=== PATIENT | female | born 1945 | race Caucasian/White ===

== ENCOUNTER 2017-09-14 11:11 | Outpatient (CLI) | payer MEDICARE, OTHER ==
--- NOTE | 2017-09-15 09:34 | PET ---
PET SCAN WITH CT ATTENUATION CORRECTION: HISTORY: Enlarged ground glass nodule in the middle lobe. Right lung adenocarcinoma. COMPARISON: None. TECHNIQUE: PET scan with CT attenuation correction was performed from the base of the brain to the proximal thig hs, following the intravenous administered of 9.8 millicuries of F18 fluorodeoxyglucose. FINDINGS: HEAD/NECK: No abnormal FDG localization. CHEST: No abnormal FDG localization. There are ground glass opacities in the middle lobe and lingul a. Maximum SUV is less than 1, with respect to both lesions. ABDOMEN/PELVIS: No abnormal FDG localization. There is increased mucosal thickening involving the s igmoid colon with evidence of diverticulosis. Findings may be due to remote bouts of infection. Cli nical correlation is essential. If the patient has not undergone a recent colonoscopy, consider colo noscopy to better evaluate the sigmoid colon. OSSEOUS STRUCTURES: No abnormal FDG localization. IMPRESSION: 1. No abnormal fluorodeoxyglucose localization associated with the ground glass opacities in the moni gula and middle lobe. The lesions maybe too small to characterize by PET. Consider [address] u [address] to evaluate left lung lesion. 2. Abnormal mucosal thickening of the sigmoid colon, as defined above. POS: QUAN
== END 2017-09-14 11:12 | disposition home or self-care (01) ==
LOC: PET 11:11
PROVIDERS: ATTEND Radiology Radiation Oncology
DX: C34.2 Malignant neoplasm of middle lobe, bronchus or lung (principal); K57.30 Diverticulosis of large intestine without perforation or abscess without bleeding; K63.89 Other specified diseases of intestine
CPT/HCPCS: 78815; A9552

== ENCOUNTER 2021-06-29 14:20 | Inpatient (IN) | payer MEDICARE, OTHER ==
[2021-06-29 15:32] LABS: Hemoglobin 11.6 g/dL (12.0-16.0); Mean Corpuscular Hemoglobin 30.1 pg (27.0-31.0); Mean Platelet Volume 9.1 fL (7.4-10.4); Platelet Count 356 thou/uL (130-400); RBC Distribution Width 16.6 % (11.5-14.5); Red Blood Cell (RBC) Count 3.86 mill/uL (4.20-5.40); White Blood Cell (WBC) Count 19.9 thou/uL (4.8-10.8)
[2021-06-29 15:44] LABS: Actual Bicarbonate (HCO3v) 20 mEq/L (22-28); Analyzer IN Cardio ER; Base Excess -10.1 mEq/L (-2.0 to +3.0); Calcium, Ionized (venous) 0.89 mmol/L (1.16-1.32); Chloride (VBG) 103 mmol/L (98-106); Hemoglobin (Hb) 12.1 g/dL (11.7-16.1); Potassium (VBG) 4.88 mmol/L (3.70-5.30)
[2021-06-29 15:47] LABS: pH (venous) 7.12 (7.32-7.43)
[2021-06-29 15:56] LABS: Anisocytosis SLIGHT = 6-15 cells (100X) (0-5/hpf); Band 23 % (5-11); Lymphocytes 7 % (21-51); MDiff Complete? YES; Metamyelocyte 2 % (0-0); Monocytes 4 % (0-10); Neutrophil 64 % (42-75); Nucleated RBC 1 % (0); Ovalocytes SLIGHT = 2-5 cells (100X) (0-1/hpf); Platelet Morphology Comment Appears Adequate; Polychromasia SLIGHT = 2-3 cells (100X) (0-2/hpf)
[2021-06-29 16:09] LABS: Bilirubin Small (Negative); Blood, Urine Moderate (Negative); Clarity Cloudy (Clear); Glucose, Urine (Dipstick) Negative (Negative); Ketone, Urine Negative (Negative); Leukocyte Moderate (Negative); Nitrite Negative (Negative); Protein, Urine (Dipstick) 30 mg/dL (Neg-Trace); Specific Gravity, Urine 1.025 (1.005-1.030); Urobilinogen 0.2 mg/dL (Less than 2)
[2021-06-29] MEDS ORDERED: Rocuronium Bromide 10 MG/ML (10ML VIAL) ONE ×2 (16:13→16:22)
[2021-06-29 16:20] LABS: Bacteria/HPF 4+ HPF (None Seen); Squamous Epithelial 0-3 HPF (0-3); WBC/HPF 21-50 HPF (0-3)
[2021-06-29 16:21] LABS: ALT (SGPT) 14 U/L (8-55); AST (SGOT) 42 U/L (5-34); Albumin 3.1 g/dL (3.4-4.8); Alkaline Phosphatase 166 U/L (40-110); Anion Gap 19 mmol/L (10-20); BUN (Urea Nitrogen) 27 mg/dL (9.8-20.1); Bilirubin, Total 0.4 mg/dL (0.2-1.2); Calc. Creatinine Clearance 0 mL/min (70-130); Calcium 8.8 mg/dL (7.8-10.44); Carbon Dioxide 19 mmol/L (23-31); Chloride 100 mmol/L (98-107); Globulin 2.8 g/dL (2.4-3.5); Glucose 119 mg/dL (83-110); Potassium 5.1 mmol/L (3.5-5.1); Protein, Total 5.9 g/dL (5.8-8.1); Sodium 133 mmol/L (136-145)
[2021-06-29] MEDS ORDERED: EPINEPHrine 1 MG/10 ML Abboject SYRINGE ONE (16:22)
[2021-06-29] MEDS ORDERED: Sodium Bicarb 50 MEQ/50 ML Abboject 8.4% SYRINGE ONE (16:22)
[2021-06-29] MEDS ORDERED: Cefepime 2 GM in Sodium Chloride 0.9% 100 ML IVPB SCH (17:00)
[2021-06-29] MEDS ORDERED: Sodium Bicarb 50 MEQ/50 ML Abboject 8.4% SYRINGE IVP SCH (17:00)
[2021-06-29] MEDS ORDERED: Vancomycin 1 GM in Premix Bag 1 BAG IVPB SCH ×2 (17:00→21:00)
[2021-06-29] MEDS ORDERED: Fentanyl CADD 100 ML IV SCH (17:00)
[2021-06-29] MEDS ORDERED: Rocuronium Bromide 50 MG/5 ML VIAL IVP SCH (17:00)
[2021-06-29] MEDS ORDERED: Cefepime 2 GM VIAL ONE (17:12)
[2021-06-29] MEDS ORDERED: Norepinephrine 8 MG/0.9% NS 0 ML ONE (17:12)
[2021-06-29 17:15] LABS: Actual Bicarbonate (HCO3a) 18.5 mEq/L (22-28); Analyzer IN Cardio ER; Base Excess (BEa) -7.7 mEq/L (-2.0 to +3.0); CO2 Tension 40.2 mmHg (35.0-45.0); Calcium, Ionized (arterial) 0.93 mmol/L (1.12-1.30); Carboxyhemoglobin (COHb) 1.2 gm% (0.0-3.0); Potassium - ABG Lab 4.59 mmol/L (3.70-5.30); pH, Arterial 7.28 (7.35-7.45)
[2021-06-29 17:19] LABS: Puncture Site LRA
[2021-06-29] MEDS ORDERED: Dexamethasone 10 MG/ML VIAL ONE (18:16)
[2021-06-29] MEDS ORDERED: Fentanyl 100 MCG/2 ML VIAL SLOW IVP PRN (19:20)
[2021-06-29] MEDS: Sodium Chloride 0.9% 1,000 ML IV SCH (19:30)
[2021-06-29] MEDS ORDERED: Norepinephrine 8 MG/0.9% NS 250 ML IVPB SCH (19:30)
[2021-06-29 20:40] LABS: Anion Gap 14 mmol/L (10-20); BUN (Urea Nitrogen) 26 mg/dL (9.8-20.1); Calc. Creatinine Clearance 0 mL/min (70-130); Calcium 8.1 mg/dL (7.8-10.44); Carbon Dioxide 19 mmol/L (23-31); Chloride 107 mmol/L (98-107); Glucose 141 mg/dL (83-110); Potassium 5.3 mmol/L (3.5-5.1); Sodium 135 mmol/L (136-145)
[2021-06-29] MEDS ORDERED: Enoxaparin Sodium 40 MG/0.4 ML SYRINGE SC SCH (22:00)
[2021-06-29 22:18] LABS: Actual Bicarbonate (HCO3a) 15.8 mEq/L (22-28); Base Excess (BEa) -8.4 mEq/L (-2.0 to +3.0); CO2 Tension 28.2 mmHg (35.0-45.0); Calcium, Ionized (arterial) 0.88 mmol/L (1.12-1.30); Carboxyhemoglobin (COHb) 1.4 gm% (0.0-3.0); Hemoglobin (Hb) 9.9 g/dL (12.0-16.0); Potassium - ABG Lab 5.23 mmol/L (3.70-5.30); pH, Arterial 7.37 (7.35-7.45)
[2021-06-29 22:20] LABS: Puncture Site LRA
[2021-06-29] MEDS ORDERED: BARICITINIB 2 MG TAB PO SCH (23:00)
[2021-06-30 06:43] VITALS: BMI 23.6
[2021-06-30] MEDS: Sodium Chloride 0.9% 1,000 ML IV SCH (08:16)
[2021-06-30] MEDS ORDERED: Enoxaparin Sodium 40 MG/0.4 ML SYRINGE SC SCH (09:00)
[2021-06-30] MEDS ORDERED: Dexamethasone 10 MG/ML VIAL SLOW IVP SCH (09:00)
[2021-06-30] MEDS ORDERED: Famotidine/PF 20 mg/2ml Vial SLOW IVP SCH (09:00)
[2021-06-30 10:42] LABS: Hemoglobin 8.8 g/dL (12.0-16.0); Mean Corpuscular HGB CONC 31.8 g/dL (32.0-36.0); Mean Corpuscular Hemoglobin 29.7 pg (27.0-31.0); Mean Corpuscular Volume 93.5 fL (78.0-98.0); Platelet Count 307 thou/uL (130-400); RBC Distribution Width 16.9 % (11.5-14.5); Red Blood Cell (RBC) Count 2.96 mill/uL (4.20-5.40); White Blood Cell (WBC) Count 12.6 thou/uL (4.8-10.8)
[2021-06-30 10:58] LABS: Anion Gap 18 mmol/L (10-20); BUN (Urea Nitrogen) 28 mg/dL (9.8-20.1); Calc. Creatinine Clearance 31 mL/min (70-130); Calcium 7.8 mg/dL (7.8-10.44); Carbon Dioxide 15 mmol/L (23-31); Chloride 112 mmol/L (98-107); Glucose 108 mg/dL (83-110); Potassium 5.3 mmol/L (3.5-5.1); Sodium 140 mmol/L (136-145)
[2021-06-30 11:17] LABS: Band 66 % (5-11); Lymphocytes 5 % (21-51); MDiff Complete? YES; Metamyelocyte 4 % (0-0); Myelocyte 2 % (0-0); Neutrophil 23 % (42-75); Platelet Morphology Comment Appears Adequate; Polychromasia SLIGHT = 2-3 cells (100X) (0-2/hpf); Vacuoles SLIGHT
[2021-06-30] MEDS: Morphine 10 MG/ML VIAL SLOW IVP PRN ×3 (13:06→23:58)
[2021-06-30] MEDS ORDERED: Cefepime 2 GM in Sodium Chloride 0.9% 100 ML IVPB SCH (17:00)
[2021-06-30] MEDS ORDERED: Vancomycin HCl 750 MG in Sodium Chloride 0.9% 250 ML 250 ML IVPB SCH (18:00)
[2021-06-30] MEDS ORDERED: BARICITINIB 2 MG TAB PO SCH (21:00)
[2021-07-01] MEDS: Morphine 10 MG/ML VIAL SLOW IVP PRN ×5 (02:43→16:50)
[2021-07-01 21:37] VITALS: BP 78/53; TEMP 97.8
== END 2021-06-30 21:55 | disposition expired | DRG 871 ==
LOC: ERS 14:20 → CCU 17:58 → T4-A 06-30 18:26
PROVIDERS: ADMIT Internal Medicine; ATTEND Internal Medicine
PROC: 5A1935Z Respiratory Ventilation, Less than 24 Consecutive Hours (ICD-10-PCS; principal; 2021-06-29)
PROC: 0BH18EZ Insertion of Endotracheal Airway into Trachea, Via Natural or Artificial Opening Endoscopic (ICD-10-PCS; 2021-06-29)
PROC: 02HV33Z Insertion of Infusion Device into Superior Vena Cava, Percutaneous Approach (ICD-10-PCS; 2021-06-29)
PROC: 8E0ZXY6 Isolation (ICD-10-PCS; 2021-06-29)
PROC: 0D9670Z Drainage of Stomach with Drainage Device, Via Natural or Artificial Opening (ICD-10-PCS; 2021-06-29)
PROC: 3E033XZ Introduction of Vasopressor into Peripheral Vein, Percutaneous Approach (ICD-10-PCS; 2021-06-29)
PROC: B548ZZA Ultrasonography of Superior Vena Cava, Guidance (ICD-10-PCS; 2021-06-29)
PROC: XW0DXM6 Introduction of Baricitinib into Mouth and Pharynx, External Approach, New Technology Group 6 (ICD-10-PCS; 2021-06-29)
DX: A41.89 Other specified sepsis (principal); U07.1 COVID-19; Z51.5 Encounter for palliative care; J12.82 Pneumonia due to coronavirus disease 2019; J96.02 Acute respiratory failure with hypercapnia; J96.01 Acute respiratory failure with hypoxia; E87.1 Hypo-osmolality and hyponatremia; J44.0 Chronic obstructive pulmonary disease with (acute) lower respiratory infection; J44.1 Chronic obstructive pulmonary disease with (acute) exacerbation; R65.20 Severe sepsis without septic shock; M06.9 Rheumatoid arthritis, unspecified; I12.9 Hypertensive chronic kidney disease with stage 1 through stage 4 chronic kidney disease, or unspecified chronic kidney disease; E03.9 Hypothyroidism, unspecified; E11.22 Type 2 diabetes mellitus with diabetic chronic kidney disease; D64.9 Anemia, unspecified; F32.A Depression, unspecified; R74.01 Elevation of levels of liver transaminase levels; L89.152 Pressure ulcer of sacral region, stage 2; K21.9 Gastro-esophageal reflux disease without esophagitis; N18.30 Chronic kidney disease, stage 3 unspecified; E11.40 Type 2 diabetes mellitus with diabetic neuropathy, unspecified; E78.5 Hyperlipidemia, unspecified; Z88.0 Allergy status to penicillin; Z88.2 Allergy status to sulfonamides; Z78.1 Physical restraint status
CPT/HCPCS: 31500; 36556; 36600; 51702; 71045; 80048; 80053; 81003; 81015; 82805; 83605; 84484; 85025; 85379; 86140; 93005; 94002; 94003; 94760; 96365; 96375; J0171; J0692; J1100; J1650; J2270; J3010; J3370; J7050; S0028